=== PATIENT | female | born 1955 | race Caucasian/White ===

== ENCOUNTER → 2016-10-15 | Outpatient (CLI) | payer OTHER | LOC: CIMAGING 15:09 | PROVIDERS: ATTEND Internal Medicine | DX: M17.12 Unilateral primary osteoarthritis, left knee (principal) | CPT/HCPCS: 73562-PO ==

== ENCOUNTER → 2016-10-17 | Outpatient (CLI) | payer OTHER | LOC: CIMAGING 14:01 | PROVIDERS: ATTEND Internal Medicine | DX: M25.562 Pain in left knee (principal) | CPT/HCPCS: 76882-PO ==

== ENCOUNTER → 2016-11-09 | Outpatient (CLI) | payer OTHER | LOC: FIMAGING 12:51 | PROVIDERS: ATTEND Orthopaedic Surgery | DX: S83.512A Sprain of anterior cruciate ligament of left knee, initial encounter (principal); S83.282A Other tear of lateral meniscus, current injury, left knee, initial encounter; S83.412A Sprain of medial collateral ligament of left knee, initial encounter; M94.8X8 Other specified disorders of cartilage, other site; M76.31 Iliotibial band syndrome, right leg; M25.462 Effusion, left knee ==

== ENCOUNTER 2016-11-22 05:44 | Day surgery (SDC) | payer OTHER ==
--- NOTE | 2016-11-21 18:01 | GHP ---
[f rep st] PREOP HISTORY AND PHYSICAL DATE OF ADMISSION: 11/22/2016 PREOPERATIVE DIAGNOSIS: Left medial meniscal tear. HISTORY OF PRESENT ILLNESS: The patient is a 61-year-old female who works at [employer], who has had ongoing left knee pain. MRI was done which showed a medial meniscal tear, and a dec ision has been made to proceed with a partial medial meniscectomy. PRIOR MEDICAL HISTORY: Asthma, melanoma, high cholesterol, reflux, hypertension, arthritis. PRIOR SURGICAL HISTORY: , tonsillectomy, right shoulder surgery, a breast biopsy, uterine ablation, appendectomy. MEDICATIONS: Aspirin, atorvastatin, , Claritin, enalapril, furosemide, montelukast, Pepci d, Prilosec. ALLERGIES: Penicillin as a child. Prednisone causes an irregular heart rate. SOCIAL HISTORY: She works at [employer]. She is a former smoker. No alcohol use. REVIEW OF SYSTEMS: No shortness of breath. No chest pain. Otherwise review of systems unremarkabl e. PHYSICAL EXAMINATION: GENERAL: Healthy-appearing 61-year-old female. She is 5 feet 6 inches tall, weighs 220 pounds. VITAL SIGNS: Blood pressure is 150/80. Heart rate is 86. Respiratory rate is 14 on room air. NEUROLOGIC: She is alert and oriented x3. HEENT: Normocephalic, atraumatic. Ex traocular muscles are intact. NECK: Supple. There is no lymphadenopathy. No JVD. CHEST: Clear to auscultation. CARDIOVASCULAR: Regular rate and rhythm. ABDOMEN: Soft, nontender, nondistended . EXTREMITIES: Focusing on the left knee. There is a slight effusion. There is tenderness on the medial joint line. Range of motion of the knee is from full extension to 130 degrees of flexion. She has a positive Fortunato sign on the medial joint line. The knee is stable to varus and valgus s tress testing. 1+ Shirlene with a slightly soft end point and less than 5 mm of excursion, compared to a firm end point on the right knee. Negative posterior drawer. She does have a little tendernes s on the medial pole of the patella, and there is some patellofemoral crepitus. IMAGING: MRI from [facility] dated 11/09/2016 is reviewed. She has a complex tear, me dial meniscus. There is also a partial tear of the ACL which looks chronic in nature, and there are some areas of full-thickness cartilage loss in the patellofemoral compartment. ASSESSMENT: Medial meniscal tear. Partial anterior cruciate ligament tear. Patellofemoral arthrit is. PLAN: Long discussion with the patient. Her symptoms are really referable to the medial joint line and she is having mechanical symptoms. She is not really having much discomfort with the patella a t this point. I recommend proceeding with an arthroscopic partial medial meniscectomy, patellofemor al chondroplasty. Risks and benefits of the surgery including infection, blood clots, continued avelina n, and postoperative stiffness were discussed. She understands these risks and wishes to proceed. We will plan on surgery Friday at the hospital, and her preoperative paperwork was completed. /[id number]/MODL
[2016-11-22] MEDS ORDERED: LR 1,000 ML IV ONE (06:13)
[2016-11-22] MEDS ORDERED: LIDO/EPI 1% **Not for Epidural 20 ML MDV ONE (06:47)
[2016-11-22] MEDS ORDERED: BUPIVACAINE/EPI 0.5% 30 ML SDV ONE (06:47)
[2016-11-22] MEDS ORDERED: PROPOFOL 200 MG/20 ML VIAL ONE ×2 (07:04→07:40)
[2016-11-22] MEDS ORDERED: fentaNYL 100 MCG/2 ML INJ ONE (07:04)
[2016-11-22 07:10] LABS: ANION GAP 10 mEq/L (8-16); CALCIUM 9.6 mg/dL (8.5-10.4); CARBON DIOXIDE 23 mEq/l (22-31); CHLORIDE 111 mEq/L (97-110); CREATININE 0.6 mg/dL (0.6-1.0); GLOMERULAR FILTRATION RATE > 60; GLUCOSE 103 mg/dL (70-100); POTASSIUM 4.1 mEq/L (3.5-5.2); SODIUM 144 mEq/L (134-144)
[2016-11-22] MEDS ORDERED: MIDAZOLAM 2 MG/2 ML VIAL ONE (07:14)
[2016-11-22] MEDS ORDERED: CLINDAMYCIN 900 MG/DEXTROSE 50 ML IV ONE (07:30)
[2016-11-22] MEDS ORDERED: DEXAMETHASONE 4 MG/ML VIAL ONE (07:36)
--- NOTE | 2016-11-22 09:03 | GOP ---
[f rep st] OPERATIVE REPORT DATE OF OPERATION: 11/22/2016 SURGEON: Austin Rapp MD ANESTHESIA: General. PREOPERATIVE DIAGNOSIS: Left knee medial meniscal tear. POSTOPERATIVE DIAGNOSIS: Left knee medial meniscal tear. PROCEDURE PERFORMED: 1. Arthroscopic partial medial meniscectomy. 2. Patellofemoral chondroplasty. FINDINGS: ESTIMATED BLOOD LOSS: Minimal. INDICATIONS: Yudelka is a female with longstanding knee pain. MRI was obtained, which showed a menis libby tear. There was some cartilage loss in the medial compartment as well as the patellofemoral com partment. Decision was made to proceed with an arthroscopic partial medial meniscectomy. DESCRIPTION OF PROCEDURE: After appropriate informed consent was obtained, patient was taken to the operating room, placed supine on the operating table. Time-out was performed. Patient was identif ied. Correct site was identified. She received 900 mg clindamycin due to a penicillin allergy. Fo llowing the induction of general endotracheal tube anesthesia, the left lower extremity was prepped and draped in the usual sterile fashion. Right lower extremity was placed in a well-padded well leg cobos. All bony prominences well padded. I instilled 5 mL 1% lidocaine with epinephrine in both the anteromedial and anterolateral portals. A small flaco incision was made. Introduced the camera through the standard anterolateral portal. Patellofemoral compartment was inspected. There was an area of full-thickness cartilage loss on the lateral side of the trochlear groove. Mild grade 2 layla nges on the undersurface of the patella. Medial lateral gutters were free of debris. I repositione d the camera, obtained a standard anteromedial portal under direct visualization. Medial meniscus w as probed. It had a horizontal cleavage tear, posterior body and horn of the meniscus. This was de brided back with a combination of biters and shaver to a smooth, stable rim of tissue. There were s ome areas of grade 2 and 3 chondral loss on the weightbearing aspect of the posterior femoral condyl e, some grade 1 changes on the tibial plateau. The anterior body and horn of the meniscus was in go od shape. The ACL, PCL were stable and intact. Looking at the lateral meniscus there was just some free edge fraying. Cartilage was in good condition in that compartment. I repositioned the camera in the patellofemoral compartment. I performed a gentle patellofemoral chondroplasty. Instruments were withdrawn. Portal incisions were closed with 3-0 nylon. I instilled 30 mL of 0.5% lidocaine with epinephrine into the knee joint. Soft sterile dressing was applied. The patient was awakened from anesthesia, taken to the recovery room in satisfactory condition. There were no immediate intr aoperative complications. COMPLICATIONS: None. DRAINS: None. /[id number]/MODL
== END 2016-11-22 09:40 | disposition home or self-care (01) ==
LOC: FSGY 05:44
PROVIDERS: ATTEND Orthopaedic Surgery
PROC: 0SBD4ZZ Excision of Left Knee Joint, Percutaneous Endoscopic Approach (ICD-10-PCS; principal; 2016-11-22 07:15)
DX: M23.232 Derangement of other medial meniscus due to old tear or injury, left knee (principal); M25.562 Pain in left knee; M17.12 Unilateral primary osteoarthritis, left knee; J45.909 Unspecified asthma, uncomplicated; E78.5 Hyperlipidemia, unspecified; K21.9 Gastro-esophageal reflux disease without esophagitis; I10 Essential (primary) hypertension; K44.9 Diaphragmatic hernia without obstruction or gangrene; Z85.820 Personal history of malignant melanoma of skin; Z87.891 Personal history of nicotine dependence
CPT/HCPCS: J1100; J2250; J2704; J3010

== ENCOUNTER → 2017-02-14 | Outpatient (CLI) | payer OTHER | LOC: BRMIMAGING 14:54 | PROVIDERS: ATTEND Internal Medicine | DX: Z12.31 Encounter for screening mammogram for malignant neoplasm of breast (principal) | CPT/HCPCS: G0202 ==

== ENCOUNTER 2017-06-27 17:26 | Emergency (ER) | payer OTHER ==
[2017-06-27] MEDS ORDERED: ONDANSETRON 4 MG/2 ML VIAL IVP ONE (17:37)
[2017-06-27] MEDS ORDERED: NS 1,000 ML IV ONE (17:37)
[2017-06-27 17:40] VITALS: O2SAT 93
[2017-06-27 17:47] LABS: % IMMATURE GRANULYOCYTES 0.3 % (0.0-1.1); ABSOLUTE IMMATURE GRANULOCYTES 0.03 10^3/uL (0.00-0.10); ADD DIFF? NO; ADD MORPH? NO; ADD SCAN? NO; ATYPICAL LYMPHOCYTE FLAG 0 (0-99); FRAGMENT RBC FLAG 0 (0-99); HEMATOCRIT 45.1 % (38.0-47.0); HEMOGLOBIN 15.4 g/dL (12.6-16.3); LEFT SHIFT FLG 0 (0-99); LIPEMIA HEMOLYSIS FLAG 90 (0-99); MEAN CELL HEMOGLOBIN 30.4 pg (27.9-34.1); MEAN CELL HEMOGLOBIN CONCENTR. 34.1 g/dL (32.4-36.7); MEAN CELL VOLUME 89.1 fL (81.5-99.8); MEAN PLATELET VOLUME 9.8 fL (8.7-11.7); PLATELET CLUMPS FLAG 10 (0-99); PLATELET COUNT 283 10^3/uL (150-400); RED BLOOD CELL COUNT 5.06 10^6/uL (4.18-5.33); RED CELL DISTRIBUTION WIDTH 13.1 % (11.5-15.2)
[2017-06-27] MEDS ORDERED: HYOSCYAMINE SULFATE 0.125 MG TAB PO ONE (17:51)
[2017-06-27 18:01] LABS: ALANINE AMINOTRANSFERASE 70 IU/L (9-52); ALBUMIN 4.2 g/dL (3.5-5.0); ALKALINE PHOSPHATASE 135 IU/L (38-126); ANION GAP 18 mEq/L (8-16); ASPARTATE AMINOTRANSFERASE 39 IU/L (14-46); BILIRUBIN,TOTAL 0.4 mg/dL (0.1-1.4); CALCIUM 9.3 mg/dL (8.5-10.4); CARBON DIOXIDE 22 mEq/l (22-31); CHLORIDE 105 mEq/L (97-110); CREATININE 0.7 mg/dL (0.6-1.0); GLOMERULAR FILTRATION RATE > 60; GLUCOSE 99 mg/dL (70-100); POTASSIUM 3.8 mEq/L (3.5-5.2); SODIUM 145 mEq/L (134-144); TOTAL PROTEIN 7.1 g/dL (6.3-8.2)
--- NOTE | 2017-06-27 18:02 | EDPHY ---
H & P Stated Complaint: abd pain and diarrhea since friday Time Seen by Provider: 06/27/17 17:29 HPI/ROS: This patient complains of crampy epigastric pain currently 5/10 intensity at times 8/10 in intensity this started 2 days prior to arrival-gradual in onset. Yesterday she developed associated loose watery diarrhea describes yellow in color greater than 10 episodes a day. She has associated nausea but no vomiting. She does report some associated reflux symptoms in addition. She reports that eating food worsens the cramping and diarrhea. She notes no other exacerbating factors and has not tried any urql-uge-hrxcecs medications for symptoms so far. Her drove her here by private vehicle for further evaluation. ROS: No fevers or chills. No significant fatigue. No other constitutional complaints HEENT: No recent URI symptoms Pulmonary: No shortness of breath or coughing Cardiovascular: No heart palpitations, lightheadedness or chest pain. GI: No lower belly pain. No hemoptysis or bloody stools. No vomiting. : No dysuria, frequency urgency Musculoskeletal: No back pain or other musculoskeletal complaints Integumentary: She had a skin rash to the left arm 2 days ago that has since resolved. Endocrine: No complaints Complete review of symptoms is otherwise negative. Source: Patient Exam Limitations: No limitations - Personal History Tetanus Vaccine Date: within 10 years - Medical/Surgical History Hx Asthma: No Hx Chronic Respiratory Disease: No Hx Diabetes: No Hx Cardiac Disease: No Hx Renal Disease: No Hx Cirrhosis: No Hx Alcoholism: No Hx HIV/AIDS: No Hx Splenectomy or Spleen Trauma: No Other PMH: HTN, tachcardia, , tubal, uterine ablation, R shoulder surgery due to arthritis, appendectomy w/colon resection (where the appendix wrapped around the colon), melanoma, tonsilectomy, adenoidectomy, stomach issues (gerd, ulcers), seasonal allergies - Family History Significant Family History: No pertinent family hx - Social History Smoking Status: Former smoker Alcohol Use: Occasionally Drug Use: None Additional Social History: 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 No suspect food ingestion. - Physical Exam Exam: General Appearance: Alert, no distress. Eyes: Pupils equal and round no pallor or injection. ENT, Mouth: Mucous membranes dry. Respiratory: There are no retractions, lungs are clear to auscultation. Cardiovascular: Regular rate and rhythm. Gastrointestinal: Hyperactive bowel sounds, soft, mild epigastric tenderness with no guarding or rebound. No organomegaly. No significant right upper quadrant tenderness. Neurological: GCS of 15 Skin: Warm and dry, no rashes. Musculoskeletal: Neck is supple nontender. Extremities are symmetrical, full range of motion. Psychiatric: Mood and affect are normal DIFFERENTIAL DIAGNOSIS: After history and physical exam differential diagnosis was considered for viral gastroenteritis, food intolerance, food poisoning, pancreatitis, cholecystitis, hepatitis Constitutional: Initial Vital Signs Temperature (C) 36.8 C 06/27/17 17:38 Heart Rate 89 06/27/17 17:38 Respiratory Rate 18 06/27/17 17:38 Blood Pressure 139/82 H 06/27/17 17:38 O2 Sat (%) 93 06/27/17 17:38 O2 Delivery Mode Room Air Allergies/Adverse Reactions: Neuromuscular Blockers, Steroidal [Steroidal Neuromuscular Blockers] Allergy ( Intermediate, Verified 11/22/16 06:18) Other-Enter Comments penicillin V potassium [From Pen-Vee K] Allergy (Unknown, Verified 06/27/17 17: 37) Rash Home Medications: Medication Instructions Recorded Aspirin [Aspirin 81mg (OTC)] 81 mg PO DAILY@06/26/13 Atorvastatin Calcium [Lipitor 10 10 mg PO DAILY@06/26/13 mg (RX)] Bisoprolol Fumarate [Zebeta (RX)] 5 mg PO DAILY@06/26/13 Enalapril Maleate [Vasotec 20 MG 20 mg PO DAILY@06/26/13 (RX)] Famotidine [Pepcid 20 MG (OTC)] 20 mg PO DAILY@06/26/13 Furosemide [Lasix 20 MG (RX)] 20 mg PO DAILY@06/26/13 Loratadine [Claritin] 10 mg PO DAILY@06/26/13 Multivitamins [Tab-A-Yeyo] 1 tab PO DAILY@06/26/13 Omeprazole [Prilosec 20 mg] 20 mg PO DAILY06 06/26/13 Albuterol PRN 11/21/16 HYOSCYAMINE SULFATE [LEVSIN-SL] 0.125 - 0.25 mg SL Q6 PRN #20 06/27/17 tab.subl Ondansetron Odt [Zofran Odt] 4 - 8 mg PO Q4PRN PRN #4 tab 06/27/17 Medical Decision Making ED Course/Re-evaluation: IV normal saline bolus Zofran IV for nausea with improvement Levsin sublingual for cramping pain, Maalox for GERD symptoms and Imodium for diarrhea. Patient had relief with cramping resolved down to 1 or 2/10. She tolerated p. o. fluids thereafter without emesis. Review of her labs reveals minimal leukocytosis, no significant metabolic abnormalities, minimal elevation of her ALT and alk-phos. The alk-phos has been elevated more than currently is in the past and within the past 5 years she has had a gallbladder ultrasound that showed no gallstones. Discussion: Patient presents with diarrhea, nausea dehydration and cramping abdominal pain I think is attributable to a viral illness. After workup, no evidence of pancreatitis, significant hepatitis or cholecystitis or other concerning findings. I counseled the patient regarding this. Think that she is safe this time for discharge home with sublingual Zofran and Levsin as needed for symptoms. She understands need to return should she develop any significant worsening of her symptoms despite the treatment plan. - Data Points Laboratory Results: Laboratory Results 06/27/17 17:41 06/27/17 17:41 06/27/17 06/27/17 17:41 17:41 WBC 10.10 10^3/uL H 10^3/uL (3.80-9.50) RBC 5.06 10^6/uL 10^6/uL (4.18-5.33) Hgb 15.4 g/dL g/dL (12.6-16.3) Hct 45.1 % % (38.0-47.0) MCV 89.1 fL fL (81.5-99.8) MCH 30.4 pg pg (27.9-34.1) MCHC 34.1 g/dL g/dL (32.4-36.7) RDW 13.1 % % (11.5-15.2) Plt Count 283 10^3/uL 10^3/uL (150-400) MPV 9.8 fL fL (8.7-11.7) Neut % (Auto) 57.4 % % (39.3-74.2) Lymph % (Auto) 32.7 % % (15.0-45.0) [place] % (Auto) 7.8 % % (4.5-13.0) Eos % (Auto) 1.4 % % (0.6-7.6) Baso % (Auto) 0.4 % % (0.3-1.7) Nucleat RBC Rel Count 0.0 % % (0.0-0.2) Absolute Neuts (auto) 5.80 10^3/uL 10^3/uL (1.70-6.50) Absolute Lymphs (auto) 3.30 10^3/uL H 10^3/uL (1.00-3.00) Absolute Monos (auto) 0.79 10^3/uL 10^3/uL (0.30-0.80) Absolute Eos (auto) 0.14 10^3/uL 10^3/uL (0.03-0.40) Absolute Basos (auto) 0.04 10^3/uL 10^3/uL (0.02-0.10) Absolute Nucleated RBC 0.00 10^3/uL 10^3/uL (0-0.01) Immature Gran % 0.3 % % (0.0-1.1) Immature Gran # 0.03 10^3/uL 10^3/uL (0.00-0.10) Sodium 145 mEq/L H mEq/L (134-144) Potassium 3.8 mEq/L mEq/L (3.5-5.2) Chloride 105 mEq/L mEq/L (97-110) Carbon Dioxide 22 mEq/l mEq/l (22-31) Anion Gap 18 mEq/L H mEq/L (8-16) BUN 11 mg/dL mg/dL (7-23) Creatinine 0.7 mg/dL mg/dL (0.6-1.0) Estimated GFR > 60 Glucose 99 mg/dL mg/dL (70-100) Calcium 9.3 mg/dL mg/dL (8.5-10.4) Total Bilirubin 0.4 mg/dL mg/dL (0.1-1.4) AST 39 IU/L IU/L (14-46) ALT 70 IU/L H IU/L (9-52) Alkaline Phosphatase 135 IU/L H IU/L (38-126) Total Protein 7.1 g/dL g/dL (6.3-8.2) Albumin 4.2 g/dL g/dL (3.5-5.0) Lipase 98 IU/L IU/L (23-300) Medications Given: Discontinued Medications Al Hydroxide/Mg Hydroxide (Maalox Susp) 30 ml PO EDNOW ONE Stop: 06/27/17 18:12 Last Admin: 06/27/17 18:16 Dose: 30 ml Hyoscyamine Sulfate (Levsin, Hyomax-Sl) 0.125 mg PO EDNOW ONE Stop: 06/27/17 17:52 Last Admin: 06/27/17 17:54 Dose: 0.125 mg Sodium Chloride (Ns) 1,000 mls @ 0 mls/hr IV EDNOW ONE; Wide Open PRN Reason: Protocol Stop: 06/27/17 17:38 Last Admin: 06/27/17 17:41 Dose: 1,000 mls Loperamide HCl (Imodium) 4 mg PO EDNOW ONE Stop: 06/27/17 18:12 Last Admin: 06/27/17 18:16 Dose: 4 mg Ondansetron HCl (Zofran) 4 mg IVP EDNOW ONE Stop: 06/27/17 17:38 Last Admin: 06/27/17 17:43 Dose: 4 mg Departure - Departure Disposition: Home, Routine, Self-Care Clinical Impression: Viral gastroenteritis, Dehydration Condition: Good Instructions: Gastroenteritis (ED), Dehydration (ED) Additional Instructions: Diagnosis: 1. Viral gastroenteritis 2. Dehydration Plan: Drink plenty fluids Light diet to feel improved Zofran for nausea or vomiting if needed Levsin for cramping if needed Vucu-[id number]-ydctdhx Imodium if needed for diarrhea. Your symptoms should improve over the next 1-2 days. Return for any significant worsening despite the treatment plan Referrals: Tracey Padilla MD [Primary Care Provider] - As per Instructions Prescriptions: HYOSCYAMINE SULFATE [LEVSIN-SL] 0.125 - 0.25 mg SL Q6 PRN #20 tab.subl PRN Reason: abd. cramping Ondansetron Odt [Zofran Odt] 4 - 8 mg PO Q4PRN PRN #4 tab PRN Reason: Vomiting
[2017-06-27] MEDS ORDERED: MAG HYDROX/AL HYDROX/SIMETH 30 ML UDCUP PO ONE (18:11)
[2017-06-27] MEDS ORDERED: LOPERAMIDE HCL 2 MG CAP PO ONE (18:11)
[2017-06-27 18:41] VITALS: BP 128/80; PULSE 79; RESP 15; TEMP 98.4
== END 2017-06-27 18:41 | disposition home or self-care (01) ==
LOC: CED 17:26
DX: A08.4 Viral intestinal infection, unspecified (principal); E86.9 Volume depletion, unspecified; E86.0 Dehydration; Z79.82 Long term (current) use of aspirin; Z87.891 Personal history of nicotine dependence
CPT/HCPCS: 80053-PO; 83690-PO; 85025-PO; 96374; J2405

== ENCOUNTER 2017-06-30 06:57 | Emergency (ER) | payer OTHER ==
[2017-06-30 07:08] VITALS: RESP 18; O2SAT 95
[2017-06-30] MEDS ORDERED: NS 1,000 ML IV ONE (07:10)
[2017-06-30] MEDS ORDERED: ONDANSETRON 4 MG/2 ML VIAL IVP ONE (07:10)
[2017-06-30 07:27] LABS: % IMMATURE GRANULYOCYTES 0.4 % (0.0-1.1); ABSOLUTE IMMATURE GRANULOCYTES 0.04 10^3/uL (0.00-0.10); ADD DIFF? NO; ADD MORPH? NO; ADD SCAN? NO; ATYPICAL LYMPHOCYTE FLAG 50 (0-99); FRAGMENT RBC FLAG 0 (0-99); HEMATOCRIT 40.3 % (38.0-47.0); HEMOGLOBIN 13.9 g/dL (12.6-16.3); LEFT SHIFT FLG 0 (0-99); LIPEMIA HEMOLYSIS FLAG 90 (0-99); MEAN CELL HEMOGLOBIN 30.5 pg (27.9-34.1); MEAN CELL HEMOGLOBIN CONCENTR. 34.5 g/dL (32.4-36.7); MEAN CELL VOLUME 88.4 fL (81.5-99.8); MEAN PLATELET VOLUME 9.9 fL (8.7-11.7); PLATELET CLUMPS FLAG 10 (0-99); PLATELET COUNT 245 10^3/uL (150-400); RED BLOOD CELL COUNT 4.56 10^6/uL (4.18-5.33); RED CELL DISTRIBUTION WIDTH 12.8 % (11.5-15.2)
--- NOTE | 2017-06-30 07:34 | EDPHY ---
H & P Stated Complaint: recheck of diarrhea/abd cramping since Wed Time Seen by Provider: 06/30/17 07:03 HPI/ROS: This patient presents with 5 day history of diarrhea. I saw her 3 days prior to arrival with associated epigastric pain described as crampy in nature and nausea but no vomiting. After benign workup here with no risk factors for dysentery the patient was diagnosed with viral gastroenteritis and sent out on Levsin for cramping if needed, Maalox and Imodium. She returns with no worsening of her symptoms but no improvement either. She complains that she has ongoing diarrhea with approximately 810 episodes a day of loose watery yellowish stool. She has ongoing epigastric pain and was unable sleep last night due to the pain that she describes as 8/10 peak intensity combination of cramping and occasional sharp pains. She took Levsin and Maalox prior to arrival this morning is now down to a 1/10 epigastric pain. She does have ongoing nausea and poor p.o. intake because she reports worsening cramping and diarrhea any time she has p.o. intake. She also developed nausea with p.o. intake. She is tolerating fluids. No recent antibiotics. ROS: No high fevers or chills. She does have some fatigue. No other constitutional symptoms HEENT: No URI symptoms. Pulmonary: No cough shortness of breath Cardiovascular: She reports some lightheadedness this morning. No heart palpitations or chest pains. : No urinary symptoms Integumentary: She reports an arm rash week and half ago that is resolved exception of 1 small band of erythema to the left forearm. She denies any pain or itching from the minimal persistent rash. Neuro: No complaints Endocrine: No complaints 10 point ROS is otherwise negative. Source: Patient Exam Limitations: No limitations - Personal History Current Tetanus/Diphtheria Vaccine: Yes Tetanus Vaccine Date: within 10 years - Medical/Surgical History Hx Asthma: Yes Hx Chronic Respiratory Disease: No Hx Diabetes: No Hx Cardiac Disease: No Hx Renal Disease: No Hx Cirrhosis: No Hx Alcoholism: No Hx HIV/AIDS: No Hx Splenectomy or Spleen Trauma: No Other PMH: HTN, tachcardia, , tubal, uterine ablation, R shoulder surgery due to arthritis, appendectomy w/colon resection (where the appendix wrapped around the colon), melanoma, tonsilectomy, adenoidectomy, stomach issues (gerd, ulcers), seasonal allergies - Social History Smoking Status: Former smoker Alcohol Use: Occasionally Drug Use: None - Physical Exam Exam: General Appearance: Alert, no distress. Eyes: Pupils equal and round no pallor or injection. ENT, Mouth: Mucous membranes moist. Respiratory: There are no retractions, lungs are clear to auscultation. Cardiovascular: Regular rate and rhythm. Gastrointestinal: Minimal periumbilical tenderness. Otherwise nontender with no organomegaly. Normoactive bowel sounds. Neurological: GCS 15 Skin: Warm and dry, no rashes. Musculoskeletal: Neck is supple nontender. Extremities are symmetrical, full range of motion. Psychiatric: Mood and affect normal DIFFERENTIAL DIAGNOSIS: After history and physical exam differential diagnosis was considered for viral gastritis, doubt bacterial dysentery, rule out metabolic disarray from diarrhea-hyponatremia, hypokalemia or other, UTI, pancreatitis, hepatitis Constitutional: Initial Vital Signs Temperature (C) 36.8 C 06/30/17 07:06 Heart Rate 80 06/30/17 07:06 Respiratory Rate 18 06/30/17 07:06 Blood Pressure 151/87 H 06/30/17 07:06 O2 Sat (%) 95 06/30/17 07:06 O2 Delivery Mode Room Air Allergies/Adverse Reactions: Neuromuscular Blockers, Steroidal [Steroidal Neuromuscular Blockers] Allergy ( Intermediate, Verified 06/30/17 07:05) Other-Enter Comments penicillin V potassium [From Pen-Vee K] Allergy (Unknown, Verified 06/30/17 07: 05) Rash Home Medications: Medication Instructions Recorded Aspirin [Aspirin 81mg (OTC)] 81 mg PO DAILY@06/26/13 Atorvastatin Calcium [Lipitor 10 10 mg PO DAILY@06/26/13 mg (RX)] Bisoprolol Fumarate [Zebeta (RX)] 5 mg PO DAILY@06/26/13 Enalapril Maleate [Vasotec 20 MG 20 mg PO DAILY@06/26/13 (RX)] Famotidine [Pepcid 20 MG (OTC)] 20 mg PO DAILY@06/26/13 Furosemide [Lasix 20 MG (RX)] 20 mg PO DAILY@06/26/13 Loratadine [Claritin] 10 mg PO DAILY@06/26/13 Multivitamins [Tab-A-Yeyo] 1 tab PO DAILY@09 06/26/13 Omeprazole [Prilosec 20 mg] 20 mg PO DAILY06 06/26/13 Albuterol PRN 11/21/16 HYOSCYAMINE SULFATE [LEVSIN-SL] 0.125 - 0.25 mg SL Q6 PRN #20 06/27/17 tab.subl Ondansetron Odt [Zofran Odt] 4 - 8 mg PO Q4PRN PRN #4 tab 06/27/17 Singulair 06/30/17 Medical Decision Making ED Course/Re-evaluation: IV normal saline bolus, Zofran IV with improvement. Discussion: Likely viral gastroenteritis with dehydration improved with treatment. - Data Points Laboratory Results: Laboratory Results 06/30/17 07:18 06/30/17 07:18 Microbiology Results: MICROBIOLOGY 06/30/17 08:15 Stool Gastrointestinal Tract Panel (PCR) - Final Sapovirus Medications Given: Discontinued Medications Sodium Chloride (Ns) 1,000 mls @ 0 mls/hr IV EDNOW ONE; Wide Open PRN Reason: Protocol Stop: 06/30/17 07:11 Last Admin: 06/30/17 07:23 Dose: 1,000 mls Ondansetron HCl (Zofran) 4 mg IVP EDNOW ONE Stop: 06/30/17 07:11 Last Admin: 06/30/17 07:23 Dose: 4 mg Departure - Departure Disposition: Home, Routine, Self-Care Clinical Impression: Epigastric pain, Nausea Diarrhea Qualifiers: Diarrhea type: unspecified type Qualified Code(s): R19.7 - Diarrhea, unspecified Condition: Good Instructions: Acute Diarrhea (ED) Additional Instructions: Diagnosis: 1. Diarrhea 2. Nausea 3. Epigastric pain Your labs today revealed no significant electrolyte abnormalities or other concerning findings. The study of the stool is pending and should be back within the next 24 hr this was sent due to the ongoing symptoms that do not seem to be improving in order to rule out bacterial or parasitic causes of diarrhea. Plan: Continue drinking plenty fluids Light diet Zofran for nausea if needed Continue Levsin for cramping if needed continue Maalox. Return for any significant worsening despite the treatment plan. Referrals: Tracey Padilla MD [Primary Care Provider] - As per Instructions Stand Alone Forms: Work Excuse
[2017-06-30 07:42] LABS: ALANINE AMINOTRANSFERASE 47 IU/L (9-52); ALBUMIN 3.6 g/dL (3.5-5.0); ALKALINE PHOSPHATASE 129 IU/L (38-126); ANION GAP 17 mEq/L (8-16); ASPARTATE AMINOTRANSFERASE 22 IU/L (14-46); BILIRUBIN,TOTAL 0.4 mg/dL (0.1-1.4); CALCIUM 8.7 mg/dL (8.5-10.4); CARBON DIOXIDE 23 mEq/l (22-31); CHLORIDE 105 mEq/L (97-110); CREATININE 0.6 mg/dL (0.6-1.0); GLOMERULAR FILTRATION RATE > 60; GLUCOSE 99 mg/dL (70-100); POTASSIUM 3.7 mEq/L (3.5-5.2); SODIUM 145 mEq/L (134-144); TOTAL PROTEIN 6.2 g/dL (6.3-8.2)
[2017-06-30 08:43] VITALS: BP 121/74; PULSE 76; TEMP 98.1
== END 2017-06-30 08:41 | disposition home or self-care (01) ==
LOC: CED 06:57
DX: R19.7 Diarrhea, unspecified (principal); R10.13 Epigastric pain; R11.0 Nausea; J45.909 Unspecified asthma, uncomplicated; I10 Essential (primary) hypertension; E86.9 Volume depletion, unspecified; Z87.891 Personal history of nicotine dependence; Z79.82 Long term (current) use of aspirin
CPT/HCPCS: 80053-PO; 83690-PO; 85025-PO; 96374; J2405

== ENCOUNTER → 2017-10-31 | Outpatient (CLI) | payer OTHER ==
[~2017-10-31] MED LIST: IOPAMIDOL (ISOVUE-300) 100 ML BTL ONE
== END ==
LOC: CIMAGING 08:38
PROVIDERS: ATTEND Family Medicine
DX: R10.31 Right lower quadrant pain (principal)
CPT/HCPCS: 74177-PO; Q9967

== ENCOUNTER 2017-11-25 09:19 | Emergency (ER) | payer OTHER ==
[2017-11-25] MEDS ORDERED: NS 1,000 ML IV ONE ×2 (09:34)
--- NOTE | 2017-11-25 09:37 | EDPHY ---
H & P Stated Complaint: diarrhea and dehydration started friday, mainly right sided abd pain Time Seen by Provider: 11/25/17 09:29 HPI/ROS: CHIEF COMPLAINT: Diarrhea HISTORY OF PRESENT ILLNESS: The patient is a 62-year-old obese female with history of appendectomy who comes to the emergency department complaining of watery explosive diarrhea for the last 4 days. No fever. No nausea vomiting. No blood in her stool. No abdominal pain. She does feel bloated. She has a history of gallstones but no right upper quadrant pain. Also had a CT 1 month ago that revealed diverticulosis but no diverticulitis. Also a spigelian hernia. No traveling, no drinking unfiltered water. REVIEW OF SYSTEMS: Constitutional: denies: chills, fever, recent illness, recent injury EENTM: denies: blurred vision, double vision, nose congestion Respiratory: denies: cough, shortness of breath Cardiac: denies: chest pain, irregular heart rate, lightheadedness, palpitations Gastrointestinal/Abdominal: See HPI Genitourinary: denies: dysuria, frequency, hematuria, pain Musculoskeletal: denies: joint pain, muscle pain Skin: denies: lesions, rash, jaundice, bruising Neurological: denies: headache, numbness, paresthesia, tingling, dizziness, weakness Hematologic/Lymphatic: denies: blood clots, easy bleeding, easy bruising Immunologic/allergic: denies: HIV/AIDS, transplant EXAM: GENERAL: Well-appearing, well-nourished and in no acute distress. HEAD: Atraumatic, normocephalic. EYES: Pupils equal round and reactive to light, extraocular movements intact, sclera anicteric, conjunctiva are normal. ENT: TMs normal, nares patent, oropharynx clear without exudates. Moist mucous membranes. NECK: Normal range of motion, supple without lymphadenopathy or JVD. LUNGS: Breath sounds clear to auscultation bilaterally and equal. No wheezes rales or rhonchi. HEART: Regular rate and rhythm without murmurs, rubs or gallops. ABDOMEN: Soft, nontender, normoactive bowel sounds. No guarding, no rebound. No masses appreciated. BACK: No CVA tenderness, no spinal tenderness, step-offs or deformities EXTREMITIES: Normal range of motion, no pitting or edema. No clubbing or cyanosis. NEUROLOGICAL: Cranial nerves II through XII grossly intact. Normal speech, normal gait. 5/5 strength, normal movement in all extremities, normal sensation PSYCH: Normal mood, normal affect. SKIN: Warm, dry, normal turgor, no visible rashes or lesions. Source: Patient Exam Limitations: No limitations - Personal History Tetanus Vaccine Date: within 10 years - Medical/Surgical History Hx Asthma: Yes Hx Chronic Respiratory Disease: No Hx Diabetes: No Hx Cardiac Disease: No Hx Renal Disease: No Hx Cirrhosis: No Hx Alcoholism: No Hx HIV/AIDS: No Hx Splenectomy or Spleen Trauma: No Other PMH: HTN, tachcardia, , tubal, uterine ablation, R shoulder surgery due to arthritis, appendectomy w/colon resection (where the appendix wrapped around the colon), melanoma, tonsilectomy, adenoidectomy, stomach issues (gerd, ulcers), seasonal allergies - Family History Significant Family History: No pertinent family hx - Social History Smoking Status: Former smoker Alcohol Use: Sober Constitutional: Initial Vital Signs Temperature (C) 36.8 C 11/25/17 09:25 Heart Rate 86 11/25/17 09:25 Respiratory Rate 18 11/25/17 09:25 Blood Pressure 141/90 H 11/25/17 09:25 O2 Sat (%) 96 11/25/17 09:25 O2 Delivery Mode Room Air Allergies/Adverse Reactions: Neuromuscular Blockers, Steroidal [Steroidal Neuromuscular Blockers] Allergy ( Intermediate, Verified 11/25/17 09:25) Other-Enter Comments penicillin V potassium [From Pen-Vee K] Allergy (Unknown, Verified 11/25/17 09: 25) Rash Home Medications: Medication Instructions Recorded Aspirin [Aspirin 81mg (OTC)] 81 mg PO DAILY@06/26/13 Atorvastatin Calcium [Lipitor 10 10 mg PO DAILY@06/26/13 mg (RX)] Bisoprolol Fumarate [Zebeta (RX)] 5 mg PO DAILY@06/26/13 Enalapril Maleate [Vasotec 20 MG 20 mg PO DAILY@06/26/13 (RX)] Famotidine [Pepcid 20 MG (OTC)] 20 mg PO DAILY@06/26/13 Furosemide [Lasix 20 MG (RX)] 20 mg PO DAILY@06/26/13 Loratadine [Claritin] 10 mg PO DAILY@06/26/13 Multivitamins [Tab-A-Yeyo] 1 tab PO DAILY@06/26/13 Omeprazole [Prilosec 20 mg] 20 mg PO DAILY06 06/26/13 Albuterol PRN 11/21/16 HYOSCYAMINE SULFATE [LEVSIN-SL] 0.125 - 0.25 mg SL Q6 PRN #20 06/27/17 tab.subl Ondansetron Odt [Zofran Odt] 4 - 8 mg PO Q4PRN PRN #4 tab 06/27/17 Singulair 06/30/17 Medical Decision Making ED Course/Re-evaluation: The patient's abdominal exam is benign. She declines pain or nausea medication. She is primarily concerned about dehydration. Will rehydrate her. 11:10 a.m. the patient is feeling much better. She is eager to go home. Her abdominal exam remains benign. She has not yet provided a stool sample. She declines further workup or testing at this time. We discussed continued hydration and indications for returning. Differential Diagnosis: Partial list of the Differential diagnosis considered include but were not limited to; diarrhea, gastroenteritis and although unlikely based on the history and physical exam, I also considered obstruction, ischemia, volvulus, diverticulitis, biliary disease. I discussed these differential diagnoses and the plan with the patient as well as the usual and expected course. The patient understands that the diagnosis is provisional and that in medicine we are not always correct and that further workup is often warranted. Usual and customary warnings were given. All of the patient's questions were answered. The patient was instructed to return to the emergency department should the symptoms at all worsen or return, otherwise to followup with the physician as we discussed. - Data Points Laboratory Results: Laboratory Results 11/25/17 09:47 11/25/17 09:47 11/25/17 11/25/17 11/25/17 10:25 09:47 09:47 WBC 7.46 10^3/uL 10^3/uL (3.80-9.50) RBC 4.94 10^6/uL 10^6/uL (4.18-5.33) Hgb 14.7 g/dL g/dL (12.6-16.3) Hct 43.2 % % (38.0-47.0) MCV 87.4 fL fL (81.5-99.8) MCH 29.8 pg pg (27.9-34.1) MCHC 34.0 g/dL g/dL (32.4-36.7) RDW 13.4 % % (11.5-15.2) Plt Count 221 10^3/uL 10^3/uL (150-400) MPV 9.9 fL fL (8.7-11.7) Neut % (Auto) 61.4 % % (39.3-74.2) Lymph % (Auto) 27.2 % % (15.0-45.0) Emmons % (Auto) 9.7 % % (4.5-13.0) Eos % (Auto) 0.9 % % (0.6-7.6) Baso % (Auto) 0.3 % % (0.3-1.7) Nucleat RBC Rel Count 0.0 % % (0.0-0.2) Absolute Neuts (auto) 4.58 10^3/uL 10^3/uL (1.70-6.50) Absolute Lymphs (auto) 2.03 10^3/uL 10^3/uL (1.00-3.00) Absolute Monos (auto) 0.72 10^3/uL 10^3/uL (0.30-0.80) Absolute Eos (auto) 0.07 10^3/uL 10^3/uL (0.03-0.40) Absolute Basos (auto) 0.02 10^3/uL 10^3/uL (0.02-0.10) Absolute Nucleated RBC 0.00 10^3/uL 10^3/uL (0-0.01) Immature Gran % 0.5 % % (0.0-1.1) Immature Gran # 0.04 10^3/uL 10^3/uL (0.00-0.10) Sodium 137 mEq/L mEq/L (135-145) Potassium 3.9 mEq/L mEq/L (3.5-5.2) Chloride 105 mEq/L mEq/L (97-110) Carbon Dioxide 21 mEq/l L mEq/l (22-31) Anion Gap 11 mEq/L mEq/L (8-16) BUN 12 mg/dL mg/dL (7-23) Creatinine 0.6 mg/dL mg/dL (0.6-1.0) Estimated GFR > 60 Glucose 99 mg/dL mg/dL (70-100) Calcium 8.9 mg/dL mg/dL (8.5-10.4) Total Bilirubin 0.4 mg/dL mg/dL (0.1-1.4) Conjugated Bilirubin 0.3 mg/dL mg/dL (0.0-0.5) Unconjugated Bilirubin 0.1 mg/dL mg/dL (0.0-1.1) AST 32 IU/L IU/L (14-46) ALT 36 IU/L IU/L (9-52) Alkaline Phosphatase 134 IU/L H IU/L (38-126) Total Protein 7.0 g/dL g/dL (6.3-8.2) Albumin 3.8 g/dL g/dL (3.5-5.0) Lipase 145 IU/L IU/L (23-300) Urine Color YELLOW Urine Appearance CLEAR Urine pH 5.0 (5.0-7.5) Ur Specific [place] 1.015 (1.002-1.030) Urine Protein NEGATIVE (NEGATIVE) Urine Ketones NEGATIVE (NEGATIVE) Urine Blood 1+ H (NEGATIVE) Urine Nitrate NEGATIVE (NEGATIVE) Urine Bilirubin NEGATIVE (NEGATIVE) Urine Urobilinogen 0.2 EU EU (0.2-1.0) Ur Leukocyte Esterase NEGATIVE (NEGATIVE) Urine RBC 1-3 /hpf /hpf (0-3) Urine WBC OCCASIONAL /hpf /hpf (0-3) Ur Epithelial Cells 2+ /lpf H /lpf (NONE-1+) Urine Bacteria TRACE /hpf H /hpf (NONE SEEN) Urine Mucus 1+ /lpf /lpf (NONE-1+) Urine Glucose NEGATIVE (NEGATIVE) Medications Given: Discontinued Medications Sodium Chloride (Ns) 1,000 mls @ 0 mls/hr IV EDNOW ONE; Wide Open PRN Reason: Protocol Stop: 11/25/17 09:35 Last Admin: 11/25/17 09:44 Dose: 1,000 mls Sodium Chloride (Ns) 1,000 mls @ 0 mls/hr IV EDNOW ONE; Wide Open PRN Reason: Protocol Stop: 11/25/17 09:35 Last Admin: 11/25/17 10:30 Dose: 1,000 mls Departure - Departure Disposition: Home, Routine, Self-Care Clinical Impression: Diarrhea Qualifiers: Diarrhea type: unspecified type Qualified Code(s): R19.7 - Diarrhea, unspecified Condition: Fair Instructions: Dehydration (ED), Acute Diarrhea (ED) Referrals: Tracey Padilla MD [Primary Care Provider] - As per Instructions
[2017-11-25 09:56] LABS: PLATELET COUNT 221 10^3/uL (150-400)
[2017-11-25 11:03] VITALS: BP 121/78
== END 2017-11-25 11:19 | disposition home or self-care (01) ==
LOC: CED 09:19
DX: R19.7 Diarrhea, unspecified (principal); E86.9 Volume depletion, unspecified; I10 Essential (primary) hypertension; J45.909 Unspecified asthma, uncomplicated; Z79.82 Long term (current) use of aspirin; Z85.820 Personal history of malignant melanoma of skin; Z87.891 Personal history of nicotine dependence
CPT/HCPCS: 80048-PO; 80076-PO; 81003-PO; 81015-PO; 83690-PO; 85025-PO

== ENCOUNTER → 2018-02-12 | Outpatient (CLI) | payer OTHER | LOC: CIMAGING 07:58 | PROVIDERS: ATTEND Family Medicine | DX: S93.402A Sprain of unspecified ligament of left ankle, initial encounter (principal) | CPT/HCPCS: 73610-PO ==

== ENCOUNTER → 2018-06-30 | Outpatient (CLI) | payer OTHER | LOC: FIMAGING 15:39 | PROVIDERS: ATTEND Orthopaedic Surgery | DX: Z01.818 Encounter for other preprocedural examination (principal); M17.12 Unilateral primary osteoarthritis, left knee ==

== ENCOUNTER → 2018-07-08 | Outpatient (CLI) | payer OTHER | END | disposition home or self-care (01) | LOC: BRMIMAGING 14:59 | PROVIDERS: ATTEND Family Medicine | DX: M85.88 Other specified disorders of bone density and structure, other site (principal); R29.890 Loss of height; Z78.0 Asymptomatic menopausal state ==

== ENCOUNTER 2018-07-28 05:20 | Inpatient (IN) | payer OTHER ==
[2018-07-28] MEDS ORDERED: ACETAMINOPHEN 500 MG TAB PO ONE (06:03)
[2018-07-28] MEDS ORDERED: TRANEXAMIC ACID 3,000 MG in NS (SYRINGE) 50 ML IRR ONE (06:03)
[2018-07-28] MEDS ORDERED: PREGABALIN 150 MG CAP PO ONE (06:03)
[2018-07-28] MEDS ORDERED: VANCOMYCIN PHARMACY TO DOSE MISC ONE (06:03)
[2018-07-28] MEDS ORDERED: ROPIVACAINE 0.2% 80 MG, EPINEPHrine 0.2 MG, KETOROLAC TROMETHAMINE 30 MG, morphINE 10 M... IU ONE (06:03)
[2018-07-28] MEDS ORDERED: LR 1,000 ML IV ONE (06:05)
[2018-07-28] MEDS ORDERED: VANCOMYCIN 1.5 GM in NS 250 ML IV ONE ×2 (06:30→19:00)
[2018-07-28] MEDS ORDERED: BUPIVACAINE/EPI 0.5% 30 ML SDV ONE (06:45)
[2018-07-28] MEDS ORDERED: THROMBIN (BOVINE) 5,000 UNIT VIAL TP ONE (06:45)
[2018-07-28] MEDS ORDERED: BACITRACIN 50,000 UNITS/10 ML SYR IRR ONE (06:45)
[2018-07-28] MEDS ORDERED: CALCIUM CHLORIDE 1 GM/10 ML INJ ONE (06:45)
[2018-07-28] MEDS ORDERED: POLYMYXIN B SULFATE 500,000 UNIT/10 ML SYR IRR ONE (06:45)
[2018-07-28] MEDS ORDERED: TRANEXAMIC ACID 3,000 MG/50 ML BAG IRR ONE (06:48)
[2018-07-28] MEDS ORDERED: MIDAZOLAM 2 MG/2 ML VIAL IVP ONE (06:57)
[2018-07-28] MEDS ORDERED: MIDAZOLAM 2 MG/2 ML VIAL ONE (06:57)
--- NOTE | 2018-07-28 06:59 | PDANEPAE ---
ANE Past Medical History - Cardiovascular History Hx Hypertension: Yes Hx Arrhythmias: No Hx Chest Pain: No Hx Coronary Artery / Peripheral Vascular Disease: No Hx CHF / Valvular Disease: No Hx Palpitations: No Cardiovascular History Comment: TACHYCARDIA CONTROLLED WITH RX LAST EPISODE 2012 - Pulmonary History Hx COPD: No Hx Asthma/Reactive Airway Disease: Yes Hx Recent Upper Respiratory Infection: No Hx Oxygen in Use at Home: No Hx Sleep Apnea: No Sleep Apnea Screening Result - Last Documented: Positive Pulmonary History Comment: ASTHMA. PNEUMONIA - Neurologic History Hx Cerebrovascular Accident: No Hx Seizures: No Hx Dementia: No - Endocrine History Hx Diabetes: No Hypothyroid: No Obesity: yes, moderate - Renal History Hx Renal Disorders: No - Liver History Hx Hepatic Disorders: No - Neurological & Psychiatric Hx Hx Neurological and Psychiatric Disorders: No - Cancer History Hx Cancer: Yes Cancer History Comment: MELANOMA - Congenital Disorder History Hx Congenital Disorders: No - GI History Hx Gastrointestinal Disorders: Yes Gastrointestinal History Comment: HIATAL HERNIA. GERD - Other Health History Other Health History: LEUKOCYTOSIS. ARTHRITIS - Chronic Pain History Chronic Pain: No - Surgical History Prior Surgeries: COLECTOMY 2013. APPENDECTOMY. BREAST BX. RT SHLDR SCOPE. T& A. UTERINE ABLATION. TUBAL LIGATION. REMVL MELANOMA RT SIDE CHEST ANE Review of Systems Review of Systems: - Exercise capacity METS (RN): 4 METS ANE Patient History - Allergies Allergies/Adverse Reactions: Neuromuscular Blockers, Steroidal [Steroidal Neuromuscular Blockers] Allergy ( Intermediate, Verified 11/25/17 09:25) Other-Enter Comments Penicillins Allergy (Verified 07/15/18 17:08) Swelling/neck,face,throat - Home Medications Home Medications: Atorvastatin Calcium [Lipitor 10 mg (RX)] 10 mg PO HS 06/26/13 [Last Taken 07/27] Bisoprolol Fumarate [Zebeta (RX)] 5 mg PO HS 06/26/13 [Last Taken 07/27/18] Enalapril Maleate [Vasotec 20 MG (RX)] 20 mg PO DAILY 06/26/13 [Last Taken 07/28 04:20] Famotidine [Pepcid 20 MG (OTC)] 20 mg PO HS 06/26/13 [Last Taken 07/27/18] Furosemide [Lasix 20 MG (RX)] 20 mg PO DAILY 06/26/13 [Last Taken 07/27/18] Loratadine [Claritin] 10 mg PO DAILY 06/26/13 [Last Taken 07/28/18 04:20] Omeprazole [Prilosec 20 mg] 20 mg PO DAILY 06/26/13 [Last Taken 07/28/18 04:20] Albuterol [Proventil Inhaler HFA (*)] 1 - 2 puffs IH Q4H PRN 11/21/16 [Last Taken 07/25/18] Montelukast Sodium [Singulair 10 mg (*)] 10 mg PO HS 06/30/17 [Last Taken ] Ibuprofen [Motrin (*)] 200 mg PO BID 07/08/18 [Last Taken 1 Week Ago ~07/21/18] Aspirin 81mg (*) 07/28/18 [Last Taken 1 Week Ago ~07/21/18] - NPO status NPO Since - Liquids (Date): 07/28/18 NPO Since - Liquids (Time): 04:20 NPO Since - Solids (Date): 07/27/18 NPO Since - Solids (Time): 21:00 - Smoking Hx Smoking Status: Former smoker - Family Anes Hx Family Hx Anesthesia Complications: NONE ANE Labs/Vital Signs - Vital Signs Blood Pressure: 158/91 Heart Rate: 74 Respiratory Rate: 18 O2 Sat (%): 99 Height: 167.64 cm Weight: 97.522 kg ANE Physical Exam - Airway Neck exam: FROM Mallampati Score: Class 2 Mouth exam: normal dental/mouth exam - Pulmonary Pulmonary: clear to auscultation - Cardiovascular Cardiovascular: regular rate and rhythym - ASA Status ASA Status: II ANE Anesthesia Plan Anesthesia Plan: spinal Regional Anesthesia: adductor canal FNB
[2018-07-28] MEDS ORDERED: PROPOFOL/EMULSION 500 MG/50 ML BOTTLE IV ONE ×2 (07:05→08:35)
[2018-07-28] MEDS ORDERED: BUPIVACAINE/DEXTROSE 7.5MG/ML 2 ML SPINAL AMP SP ONE (07:06)
--- NOTE | 2018-07-28 07:19 | PDHPUP ---
History & Physical Update H&P update statement: This history and physical update is based on an assessment of the patient which was completed after admission or registration (within 24 hours), but prior to the surgery/procedure. H&P update: H&P reviewed & patient examined, no change in patient's condition since H&P completed
--- NOTE | 2018-07-28 07:20 | PDGENHP ---
History & Physical Chief Complaint: l knee pain Relevant Physical Exam: perrl/cta/rrr/soft and nt. thender at l knee along joint line Cardiorespiratory Assessment: cta. rrr
[2018-07-28] MEDS ORDERED: METOCLOPRAMIDE 10 MG/2 ML VIAL ONE (07:52)
--- NOTE | 2018-07-28 08:13 | POSTANESTH ---
Post Anesthetic Evaluation Cardiovascular Status: Normal, Stable Respiratory Status: Normal, Stable Level of Consciousness/Mental Status: Can Participate in Eval Pain Control: Inadeq, Add Tx Required Nausea/Vomiting Control: Adequate, Prn Tx Ordered Complications Possibly Related to Anesthesia: None Noted
[2018-07-28] MEDS ORDERED: PHENYLEPHRINE HCL 100 MCG/ML SYR ONE (08:14)
[2018-07-28] MEDS ORDERED: ROPIVACAINE HCL 150 MG/30 ML INJ ONE (08:14)
[2018-07-28] MEDS ORDERED: LR 500 ML IV PRN (09:05)
[2018-07-28] MEDS ORDERED: NALOXONE HCL 0.4 MG/ML INJ IVP PRN (09:05)
[2018-07-28] MEDS ORDERED: HYDROmorphONE/DILAUDID 2 MG/ML INJ IVP PRN (09:05)
[2018-07-28] MEDS ORDERED: LABETALOL HCL 5 MG/ML 20 ML MDV IVP PRN (09:05)
[2018-07-28] MEDS ORDERED: MEPERIDINE 25 MG/0.5 ML AMP IVP PRN (09:05)
[2018-07-28] MEDS ORDERED: PHENYLEPHRINE HCL 100 MCG/ML SYR IVP PRN (09:05)
[2018-07-28] MEDS ORDERED: PROMETHAZINE HCL 25 MG/ML INJ IVP PRN (09:05)
[2018-07-28] MEDS ORDERED: ONDANSETRON 4 MG/2 ML VIAL IVP PRN (09:05)
[2018-07-28] MEDS ORDERED: DEXAMETHASONE 4 MG/ML VIAL IVP PRN (09:05)
[2018-07-28] MEDS ORDERED: DIAZEPAM 5 MG/ML 1 ML SYR IVP PRN (09:05)
[2018-07-28] MEDS ORDERED: ALBUTEROL 3 ML DEYVIAL IH PRN (09:05)
[2018-07-28] MEDS ORDERED: PROPOFOL 200 MG/20 ML VIAL ONE ×2 (09:18→09:40)
--- NOTE | 2018-07-28 09:37 | POSTOPPROG ---
Post Op Note Date of Operation: 07/28/18 Surgeon: Rayna Gutierrez Patient Relations Specialist: coltrain Anesthesia: Epidural, IV Sedation Pre-op Diagnosis: l knee oa Procedure: l tkr Inf/Abcess present in the surg proc area at time of surgery?: No Depth: Deep Incisional (Fascial) EBL: 100-500
[2018-07-28] MEDS ORDERED: LACTULOSE 20 GM/30 ML UDCUP PO PRN (09:38)
[2018-07-28] MEDS ORDERED: POLYETHYLENE GLYCOL 3350 17 GM PKT PO PRN (09:38)
[2018-07-28] MEDS ORDERED: TAPENTADOL HCL 50 MG TAB PO PRN (09:38)
[2018-07-28] MEDS ORDERED: MAGNESIUM HYDROXIDE 30 ML UDCUP PO PRN (09:38)
[2018-07-28] MEDS ORDERED: TEMAZEPAM 15 MG CAP PO PRN (09:38)
[2018-07-28] MEDS ORDERED: DIPHENOXYLATE/ATROPINE LOMOTIL 1 TAB PO PRN (09:38)
[2018-07-28] MEDS ORDERED: ONDANSETRON DISINTEGRATING 4 MG TAB PO PRN (09:38)
[2018-07-28] MEDS ORDERED: METOCLOPRAMIDE 10 MG/2 ML VIAL IVP PRN (09:38)
[2018-07-28] MEDS ORDERED: BISACODYL 10 MG SUPP PR PRN (09:38)
[2018-07-28] MEDS ORDERED: diphenhydrAMINE 25 MG CAP PO PRN (09:38)
[2018-07-28] MEDS ORDERED: ALBUTEROL 60 PUFFS/8 GM MDI IH PRN (09:41)
[2018-07-28] MEDS ORDERED: fentaNYL 100 MCG/2 ML INJ ONE (09:57)
[2018-07-28] MEDS ORDERED: LR 1,000 ML IV SCH (10:00)
[2018-07-28] MEDS: fentaNYL 100 MCG/2 ML INJ IVP PRN ×2 (10:04→10:20)
[2018-07-28] MEDS ORDERED: HYDROmorphONE/DILAUDID 2 MG/ML INJ ONE (10:19)
--- NOTE | 2018-07-28 10:21 | PDMN ---
Medical Necessity Medical necessity: Pt meets inpt criteria per MD order [place] [facility] [place] K[place] Arthro[place], Total, A-2 days. 62 y/o admitted for L TKA, pt has hx asthma, pna , obesity, HTN, tachycardia (controlled w/Rx), melanoma, and GERD. Anticipate> 2MN for L TKA/post-op care.
--- NOTE | 2018-07-28 10:48 | GOP ---
DATE OF OPERATION: 07/28/2018 SURGEON: Rayna Gutierrez MD [employer] SALES EXECUTIVE: DORI Meade LSA, certified SA whose presence was medically necessary. ANESTHESIA: Epidural, plus IV sedation and adductor nerve block per surgeon's request. PREOPERATIVE DIAGNOSIS: Left knee osteoarthritis. POSTOPERATIVE DIAGNOSIS: Left knee osteoarthritis. PROCEDURE PERFORMED: Left total knee arthroplasty with the Greg robot. FINDINGS: INDICATIONS: This is a 62-year-old female with a long history of left knee pain worsening with use a nd with time despite multiple conservative measures. She wishes to have surgery in order to resolve the problem. DESCRIPTION OF PROCEDURE: The patient was brought to the operating room after the left side had been identified as the correct side by the patient, nurse, physician. Once in the operating room, she wa s given an epidural nerve block, as well as an adductor nerve block. She was then given IV sedation and placed in a supine position. She had a tourniquet placed around the upper portion of the left th igh with the left lower extremity sterilely prepped and draped in usual fashion using a GSI solution. Once prepped and draped, limb was exsanguinated, tourniquet inflated to 250 mmHg. Incision was made on the anterior portion of the knee with sharp dissection carried down through the skin and subcutaneous layers with bleeding controlled using electrocautery. Medial parapatellar inci marbin was made through the extensor mechanism. Patella brought to the side, but not everted. The fem oral marker, as well as the tibial marker were put into place, as well as the femoral array in the salgado perior portion of the incision and another 3 cm incision was made on the tibia where the second array was placed. The robotic arrays were put into place and screwed into place. The knee was brought through range of motion for calibration of the robot, as well as ensuring placem ent of the femur and tibial site. Mapping was done of the femur and of the tibia. Once mapping was completed, balance testing was done, and once adjustment been made to computer, cuts were made on the femur guided by the robot and then cuts were made on the tibia again guided by the robot. It was no nathan via the computer that a size 4 and size 5 femur and tibia respectively were going to be good fits . They were trialed and noted to be good fit. Lug holes were drilled for the femoral component. Th e tibial tray was placed in slight external rotation, pinned into place. Keel punch passed through t he trial. Trial was then removed and drill holes were made for press-fit component onto the tibia, a t which point, a size 5 Triathlon Tritanium press-fit tibial component was put into place, noted to f it securely, and then, a size 4 left cruciate retaining press-fit component from Adrian was put into place and noted to fit securely. A trial liner was put into place, noted a 9 mm polyethylene liner seemed to fit best; therefore, a 9 mm size 4 polyethylene component was put in place and noted to fit securely. Attention was then turned to the patella. With the leg brought to full extension. The patella then everted. The abundant amount of osteophytes was removed from the patella. It was noted to be 24 mm in thickness. Oscillating saw was used to remove the posterior portion of the patella, leaving 15 mm of bone. It was noted a 35 mm button would fit best and lug holes were drilled for that patellar co mponent, and then, a 35 mm asymmetric Tritanium press-fit patella from Adrian was put into place, no nathan to fit securely. Once in place, a joint cocktail was injected in the posterior capsule, as well as periosteum of the f emur and tibia, and the extensor mechanism. The femur and tibial markers were removed, as well as th e arrays of the femur and the tibia were removed. Tranexamic acid was irrigated through the wound. Tourniquet was released at 70 minutes. Bleeding was controlled using electrocautery. 0 Vicryl sutur e was used to close the extensor mechanism, with plasma gel placed intra-articularly. 0 Vicryl and 2 -0 Vicryl suture used to close the subcutaneous layers with plasma gel injected outside the extensor mechanism, and the 2 incision sites were then closed using 3-0 V-Loc suture in a running subcuticular stitch. 30 cc of Marcaine was infused along the actual incision, itself, and the wound was then scout ssed with Steri-Strips, Xeroform, 4 x 4's, wrapped in Kerlix. Leg was completely undraped in the ope rating room, tourniquet removed from the thigh, and an Logan wrap placed around the knee. The patient was then transferred onto a stretcher, and sent to recovery room in good condition. TOURNIQUET TIME: 70 minutes. /[id number]/MODL
[2018-07-28] MEDS: ACETAMINOPHEN 325 MG TAB PO SCH ×2 (12:06→18:21)
[2018-07-28] MEDS: traMADol 50 MG TAB PO SCH ×2 (12:06→17:04)
[2018-07-28] MEDS: oxyCODONE IR 5 MG TAB PO PRN (18:22)
[2018-07-28] MEDS: FAMOTIDINE 20 MG TAB PO SCH (19:43)
[2018-07-28] MEDS: SENNOSIDES/DOCUSATE SODIUM TAB PO SCH (19:45)
[2018-07-28] MEDS ORDERED: BISOPROLOL FUMARATE 5 MG TAB PO SCH (21:00)
[2018-07-28] MEDS ORDERED: MONTELUKAST SODIUM 10 MG TAB PO SCH (21:00)
[2018-07-28] MEDS ORDERED: FAMOTIDINE 20 MG TAB PO SCH (21:00)
[2018-07-28] MEDS ORDERED: ATORVASTATIN CALCIUM 10 MG TAB PO SCH (21:00)
[2018-07-29] MEDS: traMADol 50 MG TAB PO SCH ×3 (00:09→11:43)
[2018-07-29] MEDS: ACETAMINOPHEN 325 MG TAB PO SCH ×3 (00:10→11:43)
[2018-07-29] MEDS: CYCLOBENZAPRINE 10 MG TAB PO PRN ×2 (00:12→08:03)
[2018-07-29] MEDS: oxyCODONE IR 5 MG TAB PO PRN ×3 (04:14→14:52)
[2018-07-29] MEDS: SENNOSIDES/DOCUSATE SODIUM TAB PO SCH (08:04)
[2018-07-29] MEDS: FAMOTIDINE 20 MG TAB PO SCH (08:05)
[2018-07-29] MEDS ORDERED: PANTOPRAZOLE SODIUM 40 MG TAB PO SCH (09:00)
[2018-07-29] MEDS ORDERED: ENALAPRIL MALEATE 20 MG TAB PO SCH (09:00)
[2018-07-29] MEDS ORDERED: RIVAROXABAN 10 MG TAB PO SCH (09:00)
[2018-07-29] MEDS ORDERED: FUROSEMIDE 20 MG TAB PO SCH (09:00)
[2018-07-29] MEDS ORDERED: CETIRIZINE 10 MG TAB PO SCH (09:00)
[2018-07-29 12:07] VITALS: BP 114/74
--- NOTE | 2018-07-29 13:54 | SOAPPROG ---
SOAP Progress Note Assessment/Plan: Assessment: POD#1 s/p Left TKA. She reports she is doing well with pain controlled on po pain medication. PE: Dressing is clean and dry. DF/PF intact. NV intact LLE. Calf is soft to compression without pain Plan: Discharge home today after changing dressing to waterproof dressing. Prescriptions for pain medication and Xarelto in chart. Follow up in 10-14 days for follow up appointment. 07/29/18 13:53 Objective: Vital Signs Temp Pulse Resp BP Pulse Ox 36.6 C 91 16 114/74 91 L 07/29/18 12:00 07/29/18 12:00 07/29/18 12:00 07/29/18 12:00 07/29/18 12:00 Laboratory Results 07/29/18 04:25 07/28/18 07/29/18 07/30/18 05:59 05:59 05:59 Intake Total 1520 400 Output Total 1600 700 Balance -80 -300 ICD10 Worksheet Patient Problems: Problems Problem Status Onset Epigastric pain Acute Nausea Acute S/P partial colectomy Acute
--- NOTE | 2018-07-29 13:55 | PDIAF ---
- Diagnosis Diagnosis: Left knee osteoarthritis Code Status: Full Code - Medication Management Discharge Medications: electronically signed and located in the Home Medication List. - Orders Services needed: Physical Therapy, Occupational Therapy Isolation Type: None Diet Recommendation: no restrictions on diet Diet Texture: Regular Texture Diet Additional Instructions: WBAT. Keep dressing clean and dry. Prescriptions for pain medication and Xarelto in chart. Xarelto x 10 days post op. EVAN hose to be worn x 10 days. [facility] [phone] - Follow Up Care Current Providers and Referrals: Cathleen Ward DO [Primary Care Provider] - Rayna Gutierrez MD [Medical Doctor] -
--- NOTE | 2018-07-29 16:03 | ASMTLACE ---
LACE Length of stay for Answers: 2 days current admission Acuity / Level of Answers: Yes Care: Did the patient have an inpatient admission? Comorbidities - select Answers: Other Notes: HTN; GERD all that apply # of Emergency department Answers: 0 visits in the last 6 months Score: 6 Date Signed: 07/29/2018 04:02 PM Electronically Signed By:ESSIE Hawk
--- NOTE | 2018-07-29 16:08 | ASDISCHSUM ---
Discharge Information Plan Status:Home with Home Health Medically Cleared to Leave: Discharge Date:07/29/2018 03:01 PM CM D/C Disposition: ADT D/C Disposition:[id number] Projected Discharge Date:07/29/2018 11:00 AM Transportation at D/C: Discharge Delay Reason: Follow-Up Date:07/29/2018 11:00 AM Discharge Slot: Final Diagnosis: Placement Information Referral Type:*Home Health Care Services Referral ID:[id number] Provider Name:[facility] Address 1:[address] Address 2: City:[place] Selection Factors: State:[place] Patient Contact Information Contact Name:GARYPHILIPBEATRIZSAMANTHA Relationship: Address:[address] City:[place] Alternate Phone: State/Zip Code:[place] [address] Email: Financial Information Financial Class:[employer] [facility] Primary Plan Desc[facility] Primary Plan Number:[id number] Secondary Plan Desc: Secondary Plan Number: Assessment Information LACE LACE Length of stay for Answers: 2 days current admission Acuity / Level of Answers: Yes Care: Did the patient have an inpatient admission? Comorbidities - select Answers: Other Notes: HTN; GERD all that apply # of Emergency department Answers: 0 visits in the last 6 months Score: 6 Date Signed: 07/29/2018 04:02 PM Electronically Signed By:ESSIE Hawk [facility] CM Progress Note CM Note CM Note Notes: Pt medically stable for d/c with [facility], [facility]ued[facility] with [facility] w pt today. Orders sent in [place]. Pt address/phone verified. Date Signed: 07/29/2018 04:05 PM Electronically Signed By:ESSIE Hawk Intervention Information Intervention Type:*Incorrect Registration Date of Service:07/28/2018 10:24 AM Patient Type:Inpatient Staff Member:PAUL Gamez, Aida Hours: Discipline: Severity: Comment:
--- NOTE | 2018-08-04 09:23 | GDS ---
CURRENT COMPLAINTS: Left knee pain. HISTORY OF PRESENT ILLNESS: This is a 62-year-old female with a long history of left knee pain worse siri with use and with time despite multiple conservative measures. She wishes to have surgery in or jack to resolve the problem. HOSPITAL COURSE: Patient brought to the operating room on the day of admission where she underwent a left total knee arthroplasty. Postoperatively, she was able to progress quickly and her pain was ab le to be kept under control to the point that once she had passed her physical therapy milestones, nam ferrer was able to be discharged the following day with instructions to continue with her physical therapy exercises, to be weightbearing as tolerated, and follow up in the office for further evaluation. Nam ferrer was given a discharge diagnosis of left knee osteoarthritis. /[id number]/MODL
== END 2018-07-29 15:01 | disposition home health service (06) | DRG 470 ==
LOC: F3E 05:20 → OBSVTOIN 09:42 → F3N 10:49
PROVIDERS: ADMIT Orthopaedic Surgery; ATTEND Orthopaedic Surgery
DX: M17.12 Unilateral primary osteoarthritis, left knee (principal); I10 Essential (primary) hypertension; R00.0 Tachycardia, unspecified; J45.909 Unspecified asthma, uncomplicated; K21.9 Gastro-esophageal reflux disease without esophagitis; K44.9 Diaphragmatic hernia without obstruction or gangrene; E78.5 Hyperlipidemia, unspecified; Z85.820 Personal history of malignant melanoma of skin; Z87.891 Personal history of nicotine dependence
CPT/HCPCS: 97110-GP; 97116-GP; 97161-GP; 97165-GO; 97530-GP; 97535-GO; J0171; J1170; J1885; J2250; J2270; J2370; J2704; J2765; J2795; J3010; J3370